=== PATIENT | male | born 1940 | race Caucasian/White ===

== ENCOUNTER → 2016-10-11 | Outpatient (CLI) | payer MEDICARE, OTHER ==
[~2016-10-11] MED LIST: 3N1 COMMODE MC; ASPI325T32 PO; ATOR20TA38 PO; DARI15TA3 PO; DOXA8TAB33 PO; FINA5TAB4 PO; LISI10TA2 PO; OXYC-481 PO; TRAM50TA2 PO; VIT1TABL85 PO; WALK1EAC23 MC
--- NOTE | 2016-10-11 13:35 | RADRPT ---
PROCEDURE: pelvis. CLINICAL INDICATION: Pain TECHNIQUE: A single AP view the pelvis. COMPARISON: 05/22/2016 FINDINGS: A noncemented right hip hemiarthroplasty in near anatomic alignment without acute radiographic abnor mality. There is healing post fracture deformity of the lesser trochanteric fracture. Mild heterot opic ossification is seen at the lateral margin of the joint. There is mild left hip arthrosis. IMPRESSION: 1. Right hip hemiarthroplasty in near anatomic alignment without interval change. 2. Healing post fracture deformity of the subtrochanteric and lesser trochanter regions. 3. Mild left hip arthrosis. RPTAT: PP .Kike Gomez MD, MD Date Time Electronically viewed and signed by .Kike Gomez MD, on 10/11/2016 13:35 .d/
--- NOTE | 2016-10-11 13:37 | RADRPT ---
PROCEDURE: XR Hip. CLINICAL INDICATION: Right hip pain TECHNIQUE: AP and frog lateral views of the right hip were performed. COMPARISON: 05/22/2016 FINDINGS: Noncemented right total hip arthroplasty in near anatomic alignment without acute radiographic abnor mality. There are healed post fracture deformities of the subtrochanteric and lesser trochanteric r egions. Mild heterotopic ossification is noted at the lateral margin of the joint. IMPRESSION: 1. Non cemented right hip hemiarthroplasty in near anatomic alignment without interval change. RPTAT: PP .Kike Gomez MD, Date Time Electronically viewed and signed by .Kike Gomez MD, on 10/11/2016 13:37 .d/
== END | disposition home or self-care (01) ==
LOC: HKI 08:27
PROVIDERS: ATTEND Orthopaedic Surgery
DX: Z09 Encounter for follow-up examination after completed treatment for conditions other than malignant neoplasm (principal); M25.551 Pain in right hip; Z96.641 Presence of right artificial hip joint; M51.36 Other intervertebral disc degeneration, lumbar region; M48.06 Spinal stenosis, lumbar region; Z87.81 Personal history of (healed) traumatic fracture
CPT/HCPCS: 72170; 73502; G0463